=== PATIENT | female | born 1940 | race Caucasian/White ===

== ENCOUNTER 2025-08-27 06:47 | Day surgery (SDC) | payer MEDICARE, OTHER, SELFPAY ==
[2025-08-27] VITALS (9 sets, daily range): BP systolic 117–153; BP diastolic 65–90; BMI 22.3
[2025-08-27 07:37] LABS: Hematocrit 36.9 % (37.0-47.0); Hemoglobin 12.5 g/dL (12.0-16.0); Mean Corp Hgb Conc. 33.9 g/dL (33.0-37.0); Mean Corpuscular Volume 92.0 fL (81.0-99.0); Platelet Count 206 10^3/uL (130-400); Red Cell Dist. Width 13.1 % (11.5-14.5)
[2025-08-27] MEDS: LOW STRENGTH ASPIRIN 81 MG PO (07:37)
[2025-08-27] MEDS: NSS 182 ML IV (07:37)
[2025-08-27 07:57] LABS: Blood Urea Nitrogen 20 mg/dl (7-17); Calcium 9.9 mg/dl (8.4-10.2); Carbon Dioxide 28 mmol/L (22-30); Chloride 103 mmol/L (98-107); Estimated Creatinine Clearance 53 ml/min; Glucose 91 mg/dl (70-99); Potassium 4.0 mmol/L (3.5-5.1); Sodium 137 mmol/L (135-145); eGFR > 60.00
--- NOTE | 2025-08-27 08:48 | ITS.CL.CATH ---
Air Quality Specialist - Catheterization
Cardiac Catheterization
Procedure Report:
LEFT AND RIGHT HEART CATHETERIZATION
Date of Procedure: August 27, 2025
Referring: Sheron Fulton MD
PROCEDURES:
1. Coronary angiogram.
2. Moderate sedation.
3. Right heart catheterization
INDICATION: Workup for TAVR for symptomatic severe aortic stenosis
ACCESS: Right radial artery, 6Fr. sheath, under US guidance.
Right brachial vein, 6 Lao sheath
HEMODYNAMICS : (mmHg)
RA (m) : 12
RV (s/d,m) : 42/9, 16
PA (s/d, m) : 41/18, 28
PCWP (m) : 20
PA saturation: 79.1% on room air
AO saturation: 98.4%on room air
RA saturation: 74.1% on room air
Cardiac Output : 7.03 L/min
Cardiac Index : 4.21 L/min/m-2
Systemic vascular resistance: 1115 dsc^(-5)
Pulmonary vascular resistance: 1.28 delgado unit
AO (s/d) : 144/80
CORONARY FINDINGS
Dominance: Right
Left Main Trunk (LMT): Large caliber vessel that gives rise to the LAD and LCx branches and is free of angiographic disease.
Left Anterior Descending Artery (LAD): Large caliber vessel that gives off 2 major diagonal branches as it courses along the anterior inter-ventricular groove before wrapping around the cardiac apex. There is mild diffuse atherosclerotic plaque.
Left Circumflex Artery (LCx): Small to medium caliber vessel that gives off 1 major obtuse marginal (OM) branches as it courses along the atrio-ventricular (AV) groove. The LCx and its branches are free of angiographic disease.
Right Coronary Artery (RCA): Large caliber dominant vessel that gives rise to the posterior descending artery (RPDA) and postero-lateral ventricular (RPLV) branches distally. The RCA and its branches are free of angiographic disease.
SEDATION: 27 minutes of procedural sedation was utilized. IV Midazolam and IV Fentanyl were administered. An independent diagnostic medical sonographer was present to assist with and help manage the patient's level of consciousness and physiologic status.
RADIATION SUMMARY: Fluoro Time (min): 3.7, Dose (mGy): 134.7, DAP (Gy.cm2) : 8.97
Closure Device: There were no immediate intra-procedural complications. The sheath was pulled in the industrial laborer and a vascular-band applied to the right wrist for radial artery hemostasis using the patent hemostasis technique.
CONCLUSIONS
1. No obstructive coronary artery disease.
2. Elevated right and left-sided filling pressures with normal cardiac output.
3. Known severe symptomatic aortic stenosis by echocardiogram.
RECOMMENDATIONS
1. Wean radial band per protocol. Monitor right hand perfusion and for bleeding from the radial site following removal of the vascular-band following trans-radial access.
2. Continue aggressive medical therapy and risk factor modification for secondary CAD prevention.
3. Hydrate with normal saline to mitigate the risk of contrast-induced acute kidney injury.
4. Continue with workup for transcatheter aortic valve replacement with plan for CTA of chest, abdomen and pelvis along with CT surgical evaluation for heart team approach and discussion at structural heart meeting.
Fatimah Talley MD, [facility]
Copy to: Sheron Fulton MD
[2025-08-27] MEDS: LASIX 20 MG IV (09:12)
--- NOTE | 2025-08-27 11:04 | CONSULT.STRU ---
Consultation
-
Date/Time Consultation Requested: 08/27/2025 0900
Date/Time Consultation Performed: 08/27/2025 1000
Requesting Provider: Fatimah Talley
Performing Provider: KASSIE Monroe
Reason for Consultation: Aortic stenosis/TAVR evaluation
Patient History
Physicians
Family Physician: Alanis Wilson
Outpatient Industrial Organizational Psychologist: Sheron Durbin
Primary Industrial Organizational Psychologist: Sheron Durbin
History of Present Illness
Mrs. Mariee is an 85-year-old female with past medical history of hyperlipidemia, obstructive sleep apnea, severe symptomatic aortic stenosis. She follows with Dr. Fulton at [facility]. Patient describes feeling shortness of breath doing all of her
activities. This has become more noticeable over the past 3-4 weeks. She describes significant fatigue and is taking several naps a day. She has also noticed a little chest discomfort generally sharp pains when she lays down but usually this does
not happen when she exerts herself. She denies palpitations, orthopnea, PND. She does note occasional mild edema of her left LE. Her echocardiogram report from August 08, 2025 shows LVEF of 70-75%, moderate LVH, peak and mean transaortic gradients
of 97 and 58 mmHg, mild to moderate AI, aortic valve area of 0.98 cm2, moderate TR. Compared to prior echo dated January 30, 2025 her aortic valve gradients have increased, previously at 48 mmHg mean. She underwent cardiac cath with Dr. Talley which
demonstrated No obstructive coronary artery disease. Elevated right and left-sided filling pressures with normal cardiac output. Reviewed the pathophysiology of aortic stenosis and treatment options of TAVR and SAVR. Reviewed the TAVR evaluation
process with her and provided with prescription for BMP next week, CT TAVR on09/[address] consult appointment with Dr. Joya on 09/12. Provided with TAVR education booklet.
Past Medical History
Past Medical History: CHF (Chronic Diastolic), GERD, ELIF (no CPAP), Valvular Disease (Severe , mild to moderate AI, Mild MR, moderate TR) and Other (Hyperlipidemia)
Past Surgical History
Past Surgical History: Appendectomy, Tonsilectomy and Other (lens implants)
Dental History
Dentures
Family History
Mother: N/A
Father: N/A
Social History
Alcohol: Occasional
Drug: None
Tobacco: Non-Smoker
Personal:
Living: Alone
Employment: Retired
Allergies
Allergy/AdvReac Type Severity Reaction Status Date / Time
lidocaine Allergy Severe Tongue Verified 08/27/25 07:41
Swelling
Penicillins Allergy Unknown Unknown Verified 08/27/25 07:41
Home Medications
�Medication �Instructions �Recorded �Confirmed �Type
aspirin 81 mg tablet 81 mg PO DAILY 08/27/25 08/27/25 History
calcium lactate 84 mg PO DAILY 08/27/25 08/27/25 History
estradiol 0.01% (0.1 mg/gram) 1 g vaginal .TWICE A WEEK 08/27/25 08/27/25 History
vaginal cream
lactobacillus combination no.4 3 3,000 mmu cells PO DAILY 08/27/25 08/27/25 History
billion cell capsule (Probiotic)
lutein 10 mg tablet 10 mg PO DAILY 08/27/25 08/27/25 History
magnesium 200 mg tablet 400 mg PO DAILY 08/27/25 08/27/25 History
STS%
STS %: 4.07%
Review of Systems
-
History Source: Patient
General: Reports Fatigue
HEENT: Reports Other ([place]-bilateral hearing aides)
Respiratory: Reports PEÑA; Denies Cough, Asthma or PND
Cardiac: Reports Chest Pain (sharp pain when lying down, never with exertion) and Edema (occasional mild LLE); Denies Palpitations
Abdomen/GI: Reports No Symptoms; Denies Abdominal Pain, Reflux, Indigestion, Nausea or Vomiting
: Reports Incontinence
Musculoskeletal: Reports No Symptoms
Skin: Reports No Symptoms
Neurological: Reports No Symptoms; Denies CVA, TIA, Syncope or Dizzy
Vascular: Reports No Symptoms
Physical Exam
Vital Signs
Temp 98.2 F 08/27/25 08:50
Temp route: Oral 08/27/25 08:50
Pulse 84 08/27/25 10:15
Resp Rate 15 08/27/25 10:15
Blood pressure 142/80 08/27/25 10:00
Blood pressure extremity used: Left upper arm 08/27/25 10:28
Position: Lying 08/27/25 10:28
MAP (cuff-Yvan Monitor) 99 08/27/25 10:00
SaO2 97 08/27/25 10:15
Oxygen Mode of Delivery Room air 08/27/25 10:28
Can the patient verbally communicate their pain? Yes 08/27/25 10:28
Actual Weight 60.781 kg 08/27/25 06:22
Body Mass Index (BMI) 22.3 08/27/25 06:22
Labs
08/27/25 07:14
08/27/25 07:14
Exam
General: Well Developed, Well Nourished, No Apparent Distress and Comfortable
HEENT: Moist Mucous Membranes and PERRLA
Neck: Trachea Midline
Respiratory: Clear; Negative Wheezes, Crackles or Rhonchi
Cardiac: S1/S2, Regular Rhythm and Murmur (Grade III/ JORGE)
GI: Soft, Non Tender, Non Distended and Normal Bowel Sounds
Rectal: Deferred by Provider
Skin: Warm and Dry
Neuro: AO x 3 and Nonfocal/Grossly Intact
Extremities: Pulses (+2 pedal pulses); Negative Lower Level Edema
Psych: Calm
Assessment / Plan
-
Procedure Type:�Isolated AVR
Perioperative Outcome Estimate %
Operative Mortality 4.07%
Morbidity & Mortality 8.33%
Stroke 1.66%
Renal Failure 1.1%
Reoperation 3.69%
Prolonged Ventilation 3.62%
Deep Sternal Wound Infection 0.029%
Long Hospital Stay (>14 days) 5.01%
Short Hospital Stay (<6 days)* 33%
Assessment:
Severe, symptomatic aortic stenosis
Plan:
-Continue TAVR evaluation as outpatient
-Repeat BMP on 09/03/2025 ([facility])
-CT TAVR scan 09/07/2025 at 0930 at [facility]
-CT surgery consult with Dr. Joya on 09/12
-Heart Team discussion
-Will need to initiate Aspirin 81mg daily if proceeding with TAVR
Data Reviewed
-
EKG: Report Reviewed by me
Instrument Room Technician: Report Reviewed by me and Discussed with Physician
Echo: Report Reviewed by me
Labs: Labs Reviewed by me
Old Records: Reviewed (Cardiology notes)
Total Time Spent with Patient (in minutes): 30
== END 2025-08-27 11:35 | disposition home or self-care (01) ==
LOC: CATH 06:47
PROVIDERS: ATTENDING PHYSICIAN Internal Medicine Interventional Cardiology
DX: I50.32 Chronic diastolic (congestive) heart failure (principal); E78.5 Hyperlipidemia, unspecified; G47.33 Obstructive sleep apnea (adult) (pediatric); I35.0 Nonrheumatic aortic (valve) stenosis; M06.9 Rheumatoid arthritis, unspecified; Z79.818 Long term (current) use of other agents affecting estrogen receptors and estrogen levels; Z79.82 Long term (current) use of aspirin; Z88.0 Allergy status to penicillin; Z90.49 Acquired absence of other specified parts of digestive tract
CPT/HCPCS: 99152; 99153; 80048; 85027; 93456; C1769; C1894; Q9967

== ENCOUNTER → 2025-09-07 08:48 | Outpatient (REF) | payer MEDICARE, OTHER, SELFPAY | LOC: RAD 08:48 | PROVIDERS: ATTENDING PHYSICIAN Nurse Practitioner Adult Health; FAMILY PHYSICIAN Internal Medicine | DX: I35.0 Nonrheumatic aortic (valve) stenosis (principal) | CPT/HCPCS: 74174; 75572; Q9967 ==

== ENCOUNTER 2025-10-09 04:47 | Inpatient (IN) | payer MEDICARE, OTHER, SELFPAY ==
[2025-10-01 12:37] VITALS: BMI 24.0
[2025-10-01 13:37] LABS: Hematocrit 37.3 % (37.0-47.0); Hemoglobin 12.3 g/dL (12.0-16.0); Mean Corp Hgb Conc. 33.0 g/dL (33.0-37.0); Mean Corpuscular Volume 95.2 fL (81.0-99.0); Nucleated Red Blood Cells % 0 %; Platelet Count 178 10^3/uL (130-400); Red Cell Dist. Width 13.0 % (11.5-14.5)
[2025-10-01 13:45] LABS: INR 0.99; PT 13.2 Sec (11.4-14.6)
--- NOTE | 2025-10-01 13:51 | CM ---
spoke to pt in PAT's, we disucssed preop TAVR teaching inclding lifting and driving restrictions. she is prev indep, uses 2 canes to walk, she has a walker at home. she lives alone in a 3 story home with 7 steps to enter. her niece, Deepa Donato
will be driving her here. she has the TAVR educ book, soap and instructions. she is agreeable to a f/u visit wit the transitional care nurse after dc. plan is for TAVR 10/09, cm role explained and all questions answered.
[2025-10-01 14:11] LABS: Urine Character Clear (Clear)
[2025-10-01 14:38] LABS: Glycohemoglobin (HgbA1c) 5.0 % (4.0-5.9)
[2025-10-01 14:43] LABS: ALT (SGPT) 21 U/L (0-35); AST (SGOT) 27 U/L (14-36); Albumin 4.6 g/dl (3.5-5.0); Alkaline Phosphatase 83 U/L (38-126); Blood Urea Nitrogen 22 mg/dl (7-17); Calcium 9.6 mg/dl (8.4-10.2); Carbon Dioxide 28 mmol/L (22-30); Chloride 100 mmol/L (98-107); Estimated Creatinine Clearance 52 ml/min; Glucose 79 mg/dl (70-99); Potassium 3.9 mmol/L (3.5-5.1); Sodium 137 mmol/L (135-145); Total Protein 7.8 g/dl (6.3-8.2); eGFR > 60.00
[2025-10-09] VITALS (17 sets, daily range): BP systolic 104–141; BP diastolic 53–87; BMI 24.3
--- NOTE | 2025-10-09 05:49 | PTCARENOTE ---
Received patient for TAVR prep. Alert and oriented, ambulatory with walker. SR on the monitor, HR in the 80s. VSS on room air. Confirmed CHG soap shower x2 at home. Patient clipped and wiped with CHG wipes. IV access obtained, blood work sent to
lab. Admission assessment and home medication list completed. Confirmed 81mg aspirin taken at home @0400. Confirmed NPO since midnight, besides a sip of water with her aspirin. No complaints from pt at this time, call fitzgerald within reach.
--- NOTE | 2025-10-09 06:23 | W.CVOR.SURPR ---
CVOR Surgeon Immed Pre Op
-
I have examined this patient prior to performance of the scheduled procedure.
The patient's condition is unchanged from the time of the dictated/written History and
Physical and the patient is able to undergo the scheduled procedure.
--- NOTE | 2025-10-09 09:12 | W.PN.CT.SURG ---
CT Surgery Operative Note
-
OPERATIVE REPORT
Preoperative Diagnosis: Severe aortic valve stenosis, symptomatic
Postoperative Diagnosis: Same
Procedure(s) Performed: Right trans femoral TAVR with a 29 mm Medtronic Evolut FX device with predeployment balloon valvuloplasty using 20 mm true balloon
Date of Procedure: 10/09/2025
Comorbidities:
1. Severe symptomatic aortic stenosis
2. Hyperlipidemia
3. Chronic diastolic heart failure
4. MR and TR
Cardiac Surgeon: Portia Joya MD, MPH
Frame Aligner: Fatimah Talley MD
Anesthesia: Conscious Sedation, Local
EBL: 150 cc
Products: none
Implant: Medtronic Evolut 29 mm FX+ SN: [id number]
Indication(s) for Procedures: 85-year-old female with severe aortic stenosis. Symptomatic. Preoperative echocardiographic assessment revealed a PG/MG of 97/58 mmHg, JAYLYN 0.98, VMax 4.9 m/s associated with worsening SOB on exertion. CT-TAVR protocol
revealed acceptable anatomy for a self-expanding TAVR valve.
Start time: 0725 hrs
Deployment time: 0854 hrs
End time: 0840 hrs
Radiation Dose (mGy): 643
DAP (cm2.Gy): 51.6
Fluoroscopy time (minutes): 32.8
Contrast volume (ml): 140
TAVR gradient (mmHg): 9 mmHg
Heparin Dose: 8000 units
Protamine Dose: 40 mg
Final Valve Positionin mm at the non and 3 mm at the left cusp (required 2 recaptures)
Findings: Preoperative LVEF was 70% and was 70% with baseline hyperdynamic LV following TAVR with minimal inotropic support (levo running at 2). Function was overall normal without regional wall motion abnormalities or dyskinesia. The aortic valve
was well seated with only trace PVL. The patient did not require pacing postoperative and was in sinus rhythm with new left bundle branch block. There was successful placement of 29 Evolut FX TAVR valve without acute complications.
Access:
1. Device -R MINILAB OPERATOR, perclose x 2
2. Pigtail -L MINILAB OPERATOR + 6Fr angioseal
3. Transvenous Pacer -L femoral vein
Description of Procedure: The patient was taken to the concrete plant laborer. Their identity and procedure to be performed were verified and they were positioned supine on the concrete plant laborer table. Induction via conscious sedation with local analgesia. The patient was
then prepped and draped from chin to thigh in a sterile fashion. A preoperative time-out was performed with all members of the team present. Using fluoroscopy, bilateral femoral heads and their margins were identified. Arterial and venous access
were done with a micropuncture needle with Seldinger technique. Test pacing revealed capture with excellent threshold. Angiography confirmed proper puncture site and femoral artery integrity. Two Per-Close devices were used on the TAVR side. An AL1
catheter was used to deliver a extrastiff wire and insertion of the working sheath. An AL1 catheter with a straight stiff wire was used to access the LV. The valve was prepped and mounted on to the device carrier. An ACT of >250 was achieved. We
verified x 3 under fluoroscopy that the valve was mounted correctly with paddles in appropriate position. We than set our parameters to achieve a co-planar view with the pigtail positioned in the NCC. Prior to placing the device we introduced the
20 mm true balloon for predeployment valvuloplasty. The balloon was filled valvuloplasty performed with 180 ventricular pacing, this was decently tolerated with moderate support. After a period of recovery we advanced the device with it's in-line
sheath into the descending thoracic aorta and over the arch into the root and positioned across the aortic valve. Contrast fluoroscopy was used to visualize the prosthesis across the valve. We performed a quick pre-deployment time out. We verified
positioning based on the pigtail and gentle contrast puffs. The valve was slowly deployed to just before annular contact. We paused here and verified positioning in our cusp overlap view. We then rotated WIL and removed any parallax from the valve.
Contrast was used to verify the LCC was appropriate in height. Were not happy with her initial left coronary cusp hide so full recapture was performed and we repositioned with a more ventricular position. We repositioned twice and till we had our
final position that was appropriate in height on both the left and noncoronary cusp. We slowly continued to deploy the valve until the crowns and paddles were free from the device while pacing at 180. At this point the valve was functioning and
pacing was dropped to 120. We slowly continued to deploy the valve until the crowns and paddles were free from the device. The deployment device was withdrawn into the descending thoracic aorta while maintaining wire access across the valve. A
transthoracic echocardiogram was performed . The pigtail was re-positioned at the level of the crown of the valve and angiography revealed excellent placement and seating of the valve at the annulus. The device was removed from the groin as we
cinched down the perclose devices while maintaining wire access. There was acceptable hemostasis. The pigtail was repositioned into the descending/abdominal and runoff aortogram was performed. There was no significant stenosis or dissection of the
bilateral iliofemoral systems with excellent runoff to the SFAs. All wires were removed and perclose snugged and cut. There was acceptable hemostasis of bilateral groins.
All instrument, sponge, and needle counts were confirmed to be correct x 2 at the end of the operation. The patient was transferred to the cardiac intensive care unit in stable condition.
I, Dr. Portia Joya, was present, scrubbed for, and performed all critical elements of this procedure.
Portia Joya MD, MPH
Cardiothoracic Surgeon
[facility]
This operative dictation was created using the [employer] dictation system. Please excuse any grammatical, typographical, or 'sound alike' errors
--- NOTE | 2025-10-09 10:10 | CM ---
Patient in OR today for TAVR. CM following.
[2025-10-09 10:26] LABS: ACT-LR - POC 313 Seconds (116-155)
[2025-10-09 10:26] LABS: ACT-LR - POC 219 Seconds (116-155)
--- NOTE | 2025-10-09 10:41 | PTCARENOTE ---
Patient received from the laborer egg producing farm. AO x3, neurologically intact. B/L femoral dressing CDI. VSS 100% on 2 liters NC, Lungs CTA. BP 115/64, NSR BBB HR 65. HOB flat, precautions reviewed, placed purwick for comfort, call fitzgerald in reach
[2025-10-09] MEDS: ANCEF 5 IV (15:19)
--- NOTE | 2025-10-09 15:37 | ITS.CL.TAVR ---
Mystery Shopper - TAVR Report
TAVR PRocedure
Procedure Report:
TRANSCATHETER AORTIC VALVE REPLACEMENT
Date of Procedure: October 09, 2025
Referring: Sheron Fulton MD
Operators: Drs. Fatimah Talley and Portia Joya.
PROCEDURE PERFORMED:
1. Successful placement of 29 mm Medtronic Evolut FX+ valve via right femoral artery.
2. Ultrasound-guided access.
3. Bilateral femoral angiography.
ACCESS:
1. Right common femoral artery, 8 South Sudanese sheath, under ultrasound guidance using a micropuncture kit.
2. Left common femoral vein, 6 [place]ese sheath, under ultrasound guidance using a micropuncture kit.
3. Left common femoral artery, 6 [place]ese sheath, under ultrasound guidance using a micropuncture kit.
Ultrasound was utilized for vascular access. The right and left femoral artery and vein were visualized under ultrasound, and the vessels was patent and arteries were pulsatile. An image was stored permanently in the patient's medical record.
Under direct ultrasound guidance, sheaths as noted above were inserted into the right FA and left femoral artery and vein using a micropuncture kit through a modified Seldinger technique.
PREPROCEDURE NYHA CLASS: II
DESCRIPTION OF PROCEDURE: The patient was referred for assessment of severe symptomatic aortic stenosis and following a comprehensive evaluation it was felt that transcatheter aortic valve replacement (TAVR) would be the most appropriate treatment.
Informed consent was obtained prior to the procedure. A 'time-out' was called and the procedural plan was verbally confirmed by anesthesia, surgery, perfusion, and yard laborer staff.
Arterial and venous access were obtained in the left common femoral artery and vein using a micropuncture technique and 6 Fr. sheaths were inserted. A 5 Fr. transvenous pacing wire was then advanced to the right ventricle where excellent pacing
thresholds were obtained.
A 5 Fr. pigtail catheter was then advanced to the proximal ascending aorta / noncoronary cusp where angiography was performed to define the the cusp overlap view isolating the non-coronary cusp with overlap of the right and left coronary cusps. The
cusp overlap view was KHMER 5/5 caudal 30.
Ultrasound guidance was then used to obtain arterial access in the right common femoral artery and a 6 Fr. sheath was inserted. Angiography was performed and the arteriotomy site appeared appropriate for preclosure with two Perclose devices. An 8
[place]ese sheath was then inserted back into the common femoral artery over a J-tipped guidewire. An AL1 catheter was then advanced to the proximal descending aorta. A Double-curve Lunderquist 0.035' wire was placed in the proximal descending
thoracic aorta to facilitate delivery of a 14 Fr / 13 cm Cook sheath.
An AL1 catheter was then positioned just above the aortic valve and a 0.035' Straight tip wire probed the aortic valve and crossed the stenotic leaflets. The AL1 was then advanced to the mid left ventricle. A long J-wire was advanced to the left
ventricular apex and was followed to the apex with an angled pig-tail catheter. I invasive left ventricular end-diastolic pressure was significantly elevated with LVEDP of 28 mmHg. the Double Curve Lunderquist was then positioned in the left
ventricular apex. The Evolut FX+ stent was inspected under fluoroscopy/cine while rotating the stent delivery system. The stent paddles were within the pocket and no significant crown overlap noted.
Balloon predilation was performed with rapid pacing using a 12 mm TRUE balloon. The balloon was removed and the 14fr. sheath was exchanged for the Evolut InLine delivery system. The 29 mm Evolut FX+ stent was advanced across the stenotic leaflets.
The Evolut FX+ valve was slowly deployed in the leaflet overlap view until the stent flared achieving contact at 4-5 below the noncoronary cusp. The stent continued to flared achieving contact with the left coronary cusp. The image intensifier
was rotated to an KHMER position to remove parallax from the valve with continued valve deployment with controlled pacing. We transitioned quickly through the rumble strips on the InLine delivery sheath until the marker band was positioned just below
the paddle attachment. Angiography was performed. The valve structure was released from the delivery system when we were happy with the valve position. Post deployment angiography had only mild aortic insufficiency and a mean gradient of 9 mmHg.
The Evolut FX+ delivery system capsule was reunited to the body of the delivery system. The Evolut InLine sheath was removed and the Perclose knots were advanced to the arteriotomy site resulting in excellent hemostasis.
Femoral angiography: Femoral arteriotomy bilaterally is noted to be above the bifurcation and below the inferior epigastric artery. There is minimal luminal irregularities in the visualized external iliac and femoral vessels.
CONCLUSIONS:
1. Severe symptomatic aortic stenosis. Successful deployment of a 29 mm Evolut FX+ valve with minimal aortic insufficiency post procedure
2. Successful arteriotomy closure with 2 Perclose devices.
3. Acute on chronic diastolic heart failure with LVEDP of 28 mmHG.
Fatimah Talley MD, FACC, [facility]
Copy to: Sheron Fulton MD (care team coordinator scheduler) and Alanis Wilson (PCP)
--- NOTE | 2025-10-09 15:50 | PTCARENOTE ---
Patient out of bed, walked to bathroom with rolling walker, has chronic right hip pain and toe touch weight bearing right foot. Right femoral site has scant drainage, outlined. SR BBB HR 70's, VSS. In chair, legs elevated. Using call fitzgerald for
assistance
[2025-10-09] MEDS: ZOFRAN 4 MG IV (15:58)
[2025-10-09] MEDS: MAALOX 30 ML PO (15:58)
--- NOTE | 2025-10-09 16:08 | PTCARENOTE ---
Patient reported 5 minutes of left arm numbness while in bed about 45 minutes ago, last about 5 minutes, now resolved. Dr. Talley in room and notified. Patient in chair, vomited a small amount of emeses into a basin. Nausea resolved, Zofran given.
Now with complaints of 'feeling creepy in her face, holding her cheeks, while giving IV Zofran, starting to resolve.
--- NOTE | 2025-10-09 16:15 | PTCARENOTE ---
Patient reporting soreness in her chest, pain 1 out 10, offered Tylenol but refused, will continue to monitor.
[2025-10-09] MEDS: TYLENOL 650 MG PO (17:30)
--- NOTE | 2025-10-09 20:30 | PTCARENOTE ---
Assumed care of patient at change of shift. AAOx3, VSS, B/L groin sites intact. Patient out of bed to bathroom with assist x1. Plan of care discussed and call fitzgerald within reach.
[2025-10-10] VITALS (7 sets, daily range): BP systolic 119–143; BP diastolic 67–86; PULSE 80; O2SAT 97–98; BMI 24.8
--- NOTE | 2025-10-10 01:00 | W.PN.CT ---
Today's Communication / Plan
-
Plan:
-No major issues overnight. Hemodynamically and neurologically stable
-EKG still shows LBBB, will likely go home with a monitor
-Groins are C/D/I without significant hematoma
-Repeat echo today
-OOB into chair/Ambulate
-Home today vs tomorrow with heart monitor
Assessment / Plan
-
Assessment:
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 Joya/Mayank, 10/09/25, pod#1
-Severe symptomatic aortic stenosis
-Hyperlipidemia
-Chronic diastolic heart failure
-MR and TR
-LVEF 70%
-ELIF
-HLD
-GERD
-S/P Lens implants
-S/P Tonsillectomy
-S/P Appendectomy
-Acute postop new LBBB
Discussed patient care with: Cardiology, Nursing, Respiratory Therapy, Pharmacy and Care Team
Subjective
-
Date of Service: October 10, 2025
Pt offers no complaints, feels well
Objective Data
-
PT 13.2 Sec (11.4-14.6) 10/01/25 12:34
INR 0.99 10/01/25 12:34
Vital Signs
Vital Signs
Temp Pulse Resp BP Pulse Ox
98.5 F 85 18 121/68 96
10/09/25 22:46 10/09/25 22:45 10/09/25 22:46 10/09/25 22:40 10/09/25 22:46
CT Intake/Output/Weight
10/09/25 10/09/25 10/10/25
06:59 18:59 06:59
Intake Total 2760 / 3000 240 / 3000
Output Total 700 / 1000 300 / 1000
Balance 2059 -1999
SaO2: 96 (RA)
Physical Exam
-
General: Awake, Oriented and AOx3
Cardiovascular: Regular rate & rhythm and Murmur (2/6 systolic )
Respiratory: Clear
Incision: Clean, Dry, Intact and Dressing Intact
Extremities: Other (+trace edema)
Data Reviewed
-
Lab Results: Results Reviewed
Medications: Active Meds Reviewed
Chest X-Ray: Report Reviewed and Image Reviewed
ECG: Report Reviewed and Image Reviewed
[2025-10-10 04:51] LABS: Hematocrit 31.6 % (37.0-47.0); Hemoglobin 10.4 g/dL (12.0-16.0); Mean Corp Hgb Conc. 32.9 g/dL (33.0-37.0); Mean Corpuscular Volume 94.0 fL (81.0-99.0); Platelet Count 134 10^3/uL (130-400); Red Cell Dist. Width 13.0 % (11.5-14.5)
[2025-10-10 05:12] LABS: Blood Urea Nitrogen 16 mg/dl (7-17); Calcium 9.2 mg/dl (8.4-10.2); Carbon Dioxide 28 mmol/L (22-30); Chloride 104 mmol/L (98-107); Estimated Creatinine Clearance 57 ml/min; Glucose 93 mg/dl (70-99); Magnesium 2.0 mg/dl (1.6-2.3); Potassium 3.9 mmol/L (3.5-5.1); Sodium 136 mmol/L (135-145); eGFR > 60.00
[2025-10-10] MEDS: VISBIOME 1 CAP PO (07:47)
[2025-10-10] MEDS: MAGNESIUM OXIDE 400 MG PO (07:47)
[2025-10-10] MEDS: ASPIR LOW (ENTERIC COATED) 81 MG PO (07:47)
[2025-10-10] MEDS: OCUVITE SOFTGEL 1 CAP PO (07:47)
[2025-10-10] MEDS: TYLENOL 650 MG PO (07:48)
--- NOTE | 2025-10-10 07:52 | W.PN.ANS.POP ---
Anesthesia Post Operative
- Anesthesia Post Op Note
Vital Signs Stable-See Nursing Note: Yes
Airway Patent: Yes
Adequate Pain Control: Yes
Change in Mental Status: No
Current Postoperative Nausea & Vomiting: No
Anesthesia Complications: No
General Anesthetic Recall: No
Unplanned Admission: No
Post Op Hydration Adequate: Yes
[2025-10-10] MEDS: KCL 40 MEQ PO (09:26)
[2025-10-10] MEDS: LASIX 40 MG PO (09:26)
--- NOTE | 2025-10-10 10:36 | CM ---
Chart reviewed. Patient is independent of ADLS, lives alone in a [address], [address], has a SPC and RW at home. Patient with a supportive niece who will drive her home. Plan is for the patient to return home with CT Transitional RN. CM to follow
--- NOTE | 2025-10-10 12:15 | W.PN.CARDCBS ---
Today's Communication / Plan
-
Plan:
-No major issues overnight. Hemodynamically stable. No further nausea. Likely related to sedation yesterday.
-EKG/ Tele still shows LBBB, will go home on monitor.
-Groins are C/D/I without significant hematoma
-Repeat echo showing normal LVEF, mild to mod TR with PASP 51, mild AR, Mean Aov grad 9. Agree with lasix here today.
-Ambulated with 97% SaO2 ambulating.
-Home today with heart monitor
Impression / Plan
-
Assessment:
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
-Severe symptomatic aortic stenosis
-Hyperlipidemia
-Chronic diastolic heart failure
-MR and TR
-LVEF 70%
-ELIF
-HLD
-GERD
-S/P Lens implants
-S/P Tonsillectomy
-S/P Appendectomy
-Acute postop new LBBB
Plan:
-No major issues overnight. Hemodynamically stable. No further nausea. Likely related to sedation yesterday.
-EKG/ Tele still shows LBBB, will go home on monitor.
-Groins are C/D/I without significant hematoma
-Repeat echo showing normal LVEF, mild to mod TR with PASP 51, mild AR, Mean Aov grad 9.
-OOB into chair/Ambulate
-Home today with heart monitor
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
Subjective
Date of Service: October 10, 2025
No issues overnight. Nausea resolved. tolerating diet.
Objective
Labs:
10/10/25 04:13
10/10/25 04:13
Labs
Hgb 10.4 g/dL (12.0-16.0) L 10/10/25 04:13
Hct 31.6 % (37.0-47.0) L 10/10/25 04:13
Plt Count 134 10^3/uL (130-400) 10/10/25 04:13
PT 13.2 Sec (11.4-14.6) 10/01/25 12:34
INR 0.99 10/01/25 12:34
Sodium 136 mmol/L (135-145) 10/10/25 04:13
Potassium 3.9 mmol/L (3.5-5.1) 10/10/25 04:13
BUN 16 mg/dl (7-17) 10/10/25 04:13
Creatinine 0.6 mg/dL (0.6-1.0) 10/10/25 04:13
Glucose 93 mg/dl (70-99) 10/10/25 04:13
Vital Signs and I&O:
Vital Signs
Temp Pulse Resp BP Pulse Ox
98.5 F 76 12 119/84 100
10/10/25 11:39 10/10/25 11:39 10/10/25 11:39 10/10/25 11:39 10/10/25 11:39
Vital Signs
Temp Pulse Resp BP Pulse Ox
98.5 F 76 12 119/84 100
10/10/25 11:39 10/10/25 11:39 10/10/25 11:39 10/10/25 11:39 10/10/25 11:39
Intake & Output
10/08/25 10/09/25 10/10/25 10/11/25
06:59 06:59 06:59 06:59
Intake Total 3000 / 3000
Output Total 1500 / 1500 400 / 400
Balance 1500 / 1500 -400 / -400
Physical Exam
Physical Exam
General: Awake, Oriented and AOx3
Cardiovascular: Regular rate & rhythm and Murmur (2/6 systolic )
Respiratory: Clear
Incision: Clean, Dry, Intact and Dressing Intact
Extremities: +trace edema
--- NOTE | 2025-10-10 12:18 | W.DCSUMMARY ---
Discharge Summary
Discharge Data
Date of Admission: 10/09/25
Date of Discharge: 10/10/25
Total time spent discharging patient (in min): 45
-
Pending Results: No
Hospital Course
Primary care physician:
Alanis Salcido
Outpatient brake drum molder:
Dr. Durbin
Inpatient consultants:
[facility]
Procedures:
1. Right trans femoral TAVR with a 29 mm Medtronic Evolut FX device with predeployment balloon valvuloplasty using 20 mm true balloon
Primary Diagnosis:
1. Severe Aortic stenosis
Secondary Diagnoses:
-Hyperlipidemia
-Chronic diastolic heart failure
-MR and TR
-LVEF 70%
-ELIF
-HLD
-GERD
-Acute postop new LBBB
HPI: 85 y/o female with severe aortic stenosis presents electively on 10/09 for a TF TAVR with Dr. Joya.
Hospital course: Patient was electively admitted on 10/09 for a transcatheter aortic valve replacement with Dr. Joya. There were no intra-op events and [facility]. EKG showed a new left bundle branch block. B/l groins remain
stable. She was sent to IVU for the remainder of their recovery. On 10/10, POD #1, B/L groins remained stable and no rhythm issues overnight. Repeat TTE showed a peak/mean gradient of 16/9mmHg and mild paravalvular leak. She was deemed stable for
discharge with a rhythm star due to her left bundle branch block.
Home medication changes:
see below
Discharge Plan
-
Patient Disposition: Home (Routine Discharge)
Discharge Diagnosis/Procedures: Aortic Stenosis status post Right Transfemoral TAVR (29 mm Medtronic Evolut Fx) with Dr. Portia Joya & Dr. Fatimah Talley on 10/09/25
Condition: Good
Diet: Low Cholesterol and 2 Gram Sodium
Activity: As tolerated
Additional Activity: No heavy lifting anything greater than 10 pounds for 1-week.
Driving Restrictions: No driving for 1 week
Bathing Restrictions: OK to Shower
Others Tests: Your 30-day follow-up echocardiogram is scheduled for 8:45 am on 11/13/[address] Durbin's office in [place].
Other Services: Cardiac Rehab
Wound Care: Please do not apply lotions, powders or cream to groin areas.
Keep procedural sites clean and dry.
Monitor for increased pain, redness, swelling or drainage. Notify your doctor if any occur.
Do not soak in water (bathtub, hot tub, pool) for 1-week.
Specialty Instructions: Weigh Daily- Call MD for wt gain/loss 3 lbs overnight/5 lbs in 1 week
Activity Restrictions/Additional Instructions:
You will need to take antibiotics prior to any dental cleanings or procedures to prevent infection on your new heart valve.
Please call to make appointments for Phase II Cardiac Rehab:
1) [facility] (11 min from home)
[phone]
[phone]
Referrals:
CT Transitional Care Nurse [Outside]
Alanis Wilson MD [Family Provider, Internal Medicine]
Sheron Fulton MD [Non-Admitting Privileges, Cardiology] - 11/15/25 1:30 pm
Prescriptions:
Continued
aspirin 81 mg Tablet
81 mg PO DAILY
magnesium 200 mg Tablet
400 mg PO DAILY
estradiol 0.01 % (0.1 mg/gram) Cream
1 g vaginal .TWICE A WEEK
Probiotic 3 billion cell Capsule
3,000 mmu cells PO DAILY
lutein-zeaxanthin 25-5 mg Capsule
1 cap PO DAILY
oregano oil
1 dose PO DAILY
calcium lactate 100 mg calcium Tablet
260 mg PO DAILY
Discharge Orders:
Discharge Patient (As Directed); Ordered 10/10/25
Ordered By: Brandie Bryant
Care Plan Goals
Care Plan Goals:
Problem: Readiness for enhanced knowledge related to diagnosis and treatment plan
Goal: Understand your diagnosis and treatment plan needs, including medications if applicable.
Instructions: Know your diagnosis, underlying causes and treatment plan options, including medications if applicable. Consult with your health care team to learn about your diagnosis and treatment plan, including medications if applicable.
Discharge Date and Time
Print Language: BELARUSIAN
--- NOTE | 2025-10-10 15:23 | PTCARENOTE ---
~2561-6083: Handoff report received from nightshift RN. Pt AOx4, NSR LBBB 70s-80s, +murmur, SBP 140s, RA satting 97%, diminished in bases. Pt c/o R hip pain, PRN tylenol given. Ax1 walker to ambulate OOB to bathroom then to the chair. ECHO done this
AM. Cardiac rehab in to work with patient. All needs met at this time, call fitzgerald within reach.
~0568-5661: PO lasix and K+ given per order. Patient ambulated to bathroom with Ax1 and walker. I/Os charted. All needs met at this time, call fitzgerald within reach.
~5951-3839: Ambulating pulse ox done per order. SpO2 remained above 98%, Elo Garcia made aware.
~4402-6393: DC orders in. VSS. Patient assisted with dressing. Once neice arrived, DC orders reviewed with both. All questions answered to the best of my ability, patient verbalized understanding. Tele pack and PIVs removed. All belongings left with
patient including personal walker from home. Patient DC'd in stable condition.
== END 2025-10-10 15:00 | disposition home or self-care (01) | DRG 266 ==
LOC: IVU 04:47
PROVIDERS: Internal Medicine Interventional Cardiology; ADMITTING PHYSICIAN Student in an Organized Health Care Education/Training Program; FAMILY PHYSICIAN Internal Medicine
PROC: 02RF3JZ Replacement of Aortic Valve with Synthetic Substitute, Percutaneous Approach (ICD-10-PCS; 2025-10-09)
DX: I35.0 Nonrheumatic aortic (valve) stenosis (principal); Z00.6 Encounter for examination for normal comparison and control in clinical research program; I50.33 Acute on chronic diastolic (congestive) heart failure; E78.5 Hyperlipidemia, unspecified; G47.33 Obstructive sleep apnea (adult) (pediatric); I07.1 Rheumatic tricuspid insufficiency; I34.81 Nonrheumatic mitral (valve) annulus calcification; I44.7 Left bundle-branch block, unspecified; K21.9 Gastro-esophageal reflux disease without esophagitis; Z88.0 Allergy status to penicillin
CPT/HCPCS: 33361; 36415; 71045; 71046; 76937; 80048; 80053; 81003; 82248; 83036; 83735; 83880; 85025; 85027; 85347; 85610; 86850; 86900; 86901; 87070; 93005; 93308; 93321; 93325; C1760; C1769; C1894; Q9967